=== PATIENT | female | born 1945 | race Caucasian/White ===

== ENCOUNTER 2019-09-16 16:42 | Emergency (ER) | payer MEDICARE ==
[~2019-09-16] VITALS: Ht 160 cm; Wt 68.0 kg
[2019-09-16] MEDS ORDERED: [UNRECOGNIZED DRUG - REMARK] (17:32)
[2019-09-16 18:45] VITALS: BP 188/86
== END 2019-09-16 18:45 | disposition home or self-care (01) ==
LOC: M.ERS 16:42
DX: S00.03XA Contusion of scalp, initial encounter (principal); Z90.49 Acquired absence of other specified parts of digestive tract; W07.XXXA Fall from chair, initial encounter; Y93.89 Activity, other specified; Y92.89 Other specified places as the place of occurrence of the external cause; Y99.8 Other external cause status